=== PATIENT | female | born 2000 | race Caucasian/White ===

== ENCOUNTER 2021-10-16 02:36 | Inpatient (IN) | payer MEDICAID ==
[2021-10-16] MEDS ORDERED: ceFAZolin 2 GM in Sodium Chloride 0.9% 100 ML IV ONE (07:09)
[2021-10-16] MEDS ORDERED: Sodium Chloride 0.9% 10 ML Syringe FLUSH PRN (07:09)
[2021-10-16] MEDS ORDERED: Citric Acid/Sodium Citrate Solution 30 ML Cup PO PRN (07:09)
[2021-10-16] MEDS ORDERED: ceFAZolin 1 GM Vial ONE (07:12)
[2021-10-16] MEDS ORDERED: Sodium Chloride 0.9% 100 ML ONE (07:12)
[2021-10-16] MEDS ORDERED: fentaNYL 250 MCG/5 ML SDV ONE (07:14)
[2021-10-16] MEDS ORDERED: Propofol 200 MG/20 ML SDV ONE (07:15)
[2021-10-16] MEDS ORDERED: Neostigmine Methylsulfate 1 MG/ML 5 ML Syringe ONE (07:15)
[2021-10-16] MEDS ORDERED: Glycopyrrolate 0.2 MG/ML 5 ML MDV ONE (07:15)
[2021-10-16] MEDS ORDERED: Dexamethasone 4 MG/ML SDV ONE (07:15)
[2021-10-16] MEDS ORDERED: Succinylcholine 200 MG/10 ML MDV ONE (07:15)
[2021-10-16] MEDS ORDERED: Ondansetron 4 MG/2 ML SDV ONE (07:15)
[2021-10-16] MEDS ORDERED: Rocuronium 50 MG/5 ML Vial ONE (07:15)
[2021-10-16] MEDS ORDERED: Midazolam 1 MG/ML 2 ML SDV ONE (07:17)
[2021-10-16] MEDS ORDERED: Oxytocin 10 Units/1 ML SDV ONE (07:33)
[2021-10-16 07:58] LABS: CORONAVIRUS COVID-19 NAA NEGATIVE (NEGATIVE)
[2021-10-16] MEDS ORDERED: fentaNYL 100 MCG/2 ML SDV ONE (08:10)
[2021-10-16] MEDS ORDERED: ePHEDrine 50 MG/ML SDV IVPUSH PRN (08:11)
[2021-10-16] MEDS ORDERED: diphenhydrAMINE 50 MG/ML SDV IVPUSH PRN (08:11)
[2021-10-16] MEDS ORDERED: Ondansetron 4 MG/2 ML SDV IV PRN (08:11)
[2021-10-16] MEDS ORDERED: Naloxone 0.4 MG/ML SDV IVPUSH PRN (08:11)
[2021-10-16] MEDS ORDERED: hydrOXYzine HCL 100 MG/2 ML SDV IM ONE (08:22)
[2021-10-16] MEDS ORDERED: fentaNYL 100 MCG/2 ML SDV IVPUSH ONE (08:22)
[2021-10-16] MEDS ORDERED: Ketorolac 30 MG/ML SDV IVPUSH SCH (09:00)
[2021-10-16] MEDS: Morphine 2 MG/ML SYRINGE IVPUSH PRN ×3 (09:09→13:34)
[2021-10-16] MEDS: oxyCODONE 5 MG Tab PO PRN ×3 (09:51→22:25)
[2021-10-16] MEDS: Acetaminophen 325 MG Tab PO PRN ×2 (09:52→14:09)
[2021-10-16] MEDS: Ketorolac 30 MG/ML SDV IVPUSH SCH ×2 (11:34→19:28)
[2021-10-17] MEDS: Ketorolac 30 MG/ML SDV IVPUSH SCH (02:44)
[2021-10-17] MEDS: oxyCODONE 5 MG Tab PO PRN ×2 (07:39→18:13)
[2021-10-17] MEDS: Acetaminophen 325 MG Tab PO PRN (10:14)
[2021-10-17] MEDS: Ibuprofen 800 MG Tab PO PRN ×2 (11:25→21:23)
[2021-10-17] MEDS: Docusate Sodium 100 MG Cap PO PRN (18:13)
[2021-10-18] MEDS: oxyCODONE 5 MG Tab PO PRN ×2 (03:33→14:36)
[2021-10-18] MEDS: Docusate Sodium 100 MG Cap PO PRN (03:33)
[2021-10-18] MEDS: Ibuprofen 800 MG Tab PO PRN (08:43)
[2021-10-18] MEDS ORDERED: Prenatal Multivitamin with Calcium/Folic Acid/Iron Tab PO SCH (09:00)
[2021-10-18] MEDS ORDERED: [UNRECOGNIZED DRUG - REMARK] PO SCH (09:00)
== END 2021-10-18 14:30 | disposition home or self-care (01) | DRG 788 ==
LOC: JP.OB 02:36 → JP.OBCHECK 02:36 → JP.OB 07:10 → OBSVTOIN 07:32 → JP.2SS 10:52
PROVIDERS: ADMIT Obstetrics & Gynecology; ATTEND Obstetrics & Gynecology
PROC: 10D00Z1 Extraction of Products of Conception, Low, Open Approach (ICD-10-PCS; principal; 2021-10-16)
DX: O76 Abnormality in fetal heart rate and rhythm complicating labor and delivery (principal); Z3A.38 38 weeks gestation of pregnancy; Z37.0 Single live birth; Z20.822 Contact with and (suspected) exposure to COVID-19
CPT/HCPCS: 0241U; 36415; 80305-QW; 81001; 84112; 85025; 86850; 86900; 86901; 88307; 99211; A9270-GY; J0330; J0690; J1100; J1885; J2250; J2270; J2405; J2590; J2704; J2710; J3010; J3410; J3490; J7120

== ENCOUNTER 2021-11-28 18:36 | Emergency (ER) | payer MEDICAID | END 2021-11-28 20:08 | disposition home or self-care (01) | LOC: JP.ED 18:36 | DX: R10.32 Left lower quadrant pain (principal); Z79.899 Other long term (current) drug therapy; Z91.040 Latex allergy status | CPT/HCPCS: 74018; 74018-26; 81001; 99282; 99284 ==